=== PATIENT | male | born 1995 | race Caucasian/White ===

== ENCOUNTER 2017-09-07 20:17 | Emergency (ER) | payer SELFPAY ==
[2017-09-07 21:19] VITALS: BP 139/80
--- NOTE | 2017-09-07 21:54 | RADIOLOGY REPORT (SQ) ---
EXAM DESCRIPTION: HAND RIGHT 3 VIEWS COMPLETED DATE/TIME: 09/07/2017 9:46 pm REASON FOR STUDY: pain COMPARISON: 11/26/2011 EXAM PARAMETERS: NUMBER OF VIEWS: Three views. TECHNIQUE: AP, lateral and oblique radiographic images acquired of the right hand. LIMITATIONS: None. FINDINGS: MINERALIZATION: Normal. BONES: No acute fracture or dislocation. No worrisome bone lesions. JOINTS: No effusions. SOFT TISSUES: Soft tissue swelling. No foreign body. OTHER: No other significant finding. IMPRESSION: SOFT TISSUE SWELLING WITHOUT FRACTURE. TECHNICAL DOCUMENTATION: JOB ID: [id number] [employer]- All Rights Reserved Reading location - IP/workstation name: [email or web address]
--- NOTE | 2017-09-07 22:03 | ER Document Report ---
HPI - HPI Pain Level: 4 Context: patient is a right hand dominant 21 year old male who presents to the ED complaining of right hand pain over the 5th metacarpal after pounding his fist on a milk crate earlier this afternoon. Has full ROM, denies numbness or tingling. 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 EENT: DENIES: Sore Throat, Ear Pain, Eye problems - CARDIOVASCULAR Cardiovascular: DENIES: Chest pain - RESPIRATORY Respiratory: DENIES: Trouble Breathing, Coughing - GASTROINTESTINAL Gastrointestinal: DENIES: Abdominal Pain, Black / Bloody Stools - URINARY Urinary: DENIES: Dysuria, Urgency, Frequency - MUSCULOSKELETAL Musculoskeletal: REPORTS: Extremity pain - r hand Past Medical History - Social History Smoking Status: Current Every Day Smoker Family History: Reviewed & Not Pertinent Patient has suicidal ideation: No Patient has homicidal ideation: No Renal/ Medical History: Denies: Hx Peritoneal Dialysis Psychiatric Medical History: Reports: Hx Attention Deficit Hyperactivity Disorder, Hx Bipolar Disorder - Immunizations Immunizations up to date: Yes Hx Diphtheria, Pertussis, Tetanus Vaccination: Yes Hx Pneumococcal Vaccination: 04/02/00 Vertical Provider Document - CONSTITUTIONAL Agree With Documented VS: Yes Notes: PHYSICAL EXAM GENERAL: Alert, interacts well. EXTREMITIES: Moves all 4 extremities spontaneously. mild soft tissue swelling and tenderness over the 5th metacarpal with minimal tenderness No edema, radial pulses 2/4 bilaterally. No cyanosis. cap refill < 2 seconds in b/l UE digits NEUROLOGICAL: Alert and oriented x4. Normal speech. PSYCH: Normal affect, normal mood. SKIN: Warm, dry, normal turgor. No rashes or lesions noted. Course - Re-evaluation Re-evalutation: 09/07/17 22:03 No evidence of a septic joint, gout flare, dislocation, or fracture on exam and imaging. presentation consistent with contusion. Vitals wnl. At this time, I do not see an indication for labs or further imaging. patient accepting franco wrap but declining PO medication. Will discharge with conservative measures, return precautions, and follow-up recommendations. - Vital Signs Vital signs: Temp Pulse Resp BP Pulse Ox 98.8 F 93 20 139/80 H 97 09/07/17 21:17 09/07/17 21:17 09/07/17 21:17 09/07/17 21:17 09/07/17 21:17 - Diagnostic Test Radiology reviewed: Image reviewed, Reports reviewed Procedures - Immobilization Right Hand Pre-Proc Neuro Vasc Exam: Normal Immobilizer type: Franco wrap Performed by: PCT Post-Proc Neuro Vasc Exam: Normal, Unchanged from pre-exam Discharge - Discharge Clinical Impression: Hand injury Qualifiers: Encounter type: initial encounter Laterality: right Qualified Code(s): S69.91XA - Unspecified injury of right wrist, hand and finger(s), initial encounter Condition: Good Disposition: HOME, SELF-CARE Instructions: Franco Wrap (OM), Contusion (OM), Ice & Elevation (OM) Forms: Elevated Blood Pressure Referrals: LOCALMD,NO [Primary Care Provider] - Follow up as needed
[2017-09-07] MEDS ORDERED: ACETAMINOPHEN 325 MG TABLET PO ONE (22:09)
[2017-09-07] MEDS ORDERED: IBUPROFEN 800 MG TABLET PO ONE (22:09)
== END 2017-09-07 22:18 | disposition home or self-care (01) ==
LOC: ER 20:17
DX: S69.91XA Unspecified injury of right wrist, hand and finger(s), initial encounter (principal); M79.641 Pain in right hand; F17.200 Nicotine dependence, unspecified, uncomplicated; W22.09XA Striking against other stationary object, initial encounter
CPT/HCPCS: 99283

== ENCOUNTER 2018-11-07 09:01 | Emergency (ER) | payer OTHER ==
[2018-11-07 09:11] VITALS: BP 153/91
--- NOTE | 2018-11-07 09:47 | ER Document Report ---
HPI - HPI Patient complains to provider of: left elbow pain Time Seen by Provider: 11/07/18 09:18 Onset: Other Quality of pain: Achy Severity: Severe Pain Level: 4 Context: This 23-year-old male presents emergency department with left elbow pain. He reports he went to a job interview physical on Sunday. They had him hold and twirl shovel in the dirt for 2 minutes. He reports 10 minutes after he left the physical his left elbow started hurting. He denies trauma. Denies past medical history of injury to the elbow. Denies fever vomiting diarrhea. Patient points to his left lateral epicondyle area for pain. No fever no warmth no swelling to the area. 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 Lives with: Family Family History: Reviewed & Not Pertinent Patient has suicidal ideation: No Patient has homicidal ideation: No Renal/ Medical History: Denies: Hx Peritoneal Dialysis Psychiatric Medical History: Reports: Hx Attention Deficit Hyperactivity Disorder, Hx Bipolar Disorder Surgical Hx: Negative - Denies - Immunizations Immunizations up to date: Yes Hx Diphtheria, Pertussis, Tetanus Vaccination: Yes Hx Pneumococcal Vaccination: 04/02/00 Vertical Provider Document - CONSTITUTIONAL Agree With Documented VS: Yes Exam Limitations: No Limitations General Appearance: WD/WN, No Apparent Distress - INFECTION CONTROL TRAVEL OUTSIDE OF THE [place] IN LAST 30 DAYS: No - HEENT HEENT: Atraumatic, Normocephalic - NECK Neck: Supple - RESPIRATORY Respiratory: No Respiratory Distress - CARDIOVASCULAR Cardiovascular: Regular Rate - MUSCULOSKELETAL/EXTREMETIES Musculoskeletal/Extremeties: MAEW, FROM, Tender - Left lateral epicondyle area tender to palpation no erythema no swelling no warmth full range of motion good radial pulse good cap refill - NEURO Level of Consciousness: Awake, Alert, Appropriate Motor/Sensory: No Motor Deficit - DERM Integumentary: Warm, Dry Adult Front & Back Diagram: 1 - Patient complains of pain tenderness Course - Re-evaluation Re-evalutation: 11/07/18 09:46 This 23-year-old male presents emergency department reporting that he did a physical for a job on Sunday. They had him hold a shovel and tore a lid indurate for 2 minutes. He reports 10 minutes after leaving the physical his left elbow started hurting. Denies trauma reports he did not fall on the elbow. Reports no history of injury to the elbow. Appears to be lateral epicondylitis. Patient was instructed on plan of care brace ibuprofen for pain follow-up with orthopedics for continued paring. He wa s advised to avoid repetitive motions with that arm. He verbalized understanding to all instructions Dictation of this chart was performed using voice recognition software; therefore, there may be some unintended grammatical errors. - Vital Signs Vital signs: Temp Pulse Resp BP Pulse Ox 98.6 F 75 16 153/91 H 96 11/07/18 09:05 11/07/18 09:05 11/07/18 09:05 11/07/18 09:05 11/07/18 09:05 Discharge - Discharge Clinical Impression: Elbow pain, left Lateral epicondylitis of elbow Qualifiers: Laterality: left Qualified Code(s): M77.12 - Lateral epicondylitis, left elbow Condition: Stable Disposition: HOME, SELF-CARE Instructions: Tennis Elbow (Lateral Epicondylitis) ([facility]), Use of [id number] Ibuprofen ([facility]) Additional Instructions: *You have been evaluated for left lateral epicondylitis *Maintain the brace *Rest/Ice/Elevate our arm *Follow up with orthopedics for continued pain *Avoid repetitive motions *Take ibuProfen as indicated *Return to ED for worsening condition, changes, needs Monitor your blood pressure. Your blood pressure was elevated today. This may be because you were anxious, in pain or because you need medication. It is important to follow up with your primary care provider for full evaluation. Forms: Return to Work, Elevated Blood Pressure
== END 2018-11-07 09:54 | disposition home or self-care (01) ==
LOC: ER 09:01
DX: M25.522 Pain in left elbow (principal); M77.12 Lateral epicondylitis, left elbow; X50.1XXA Overexertion from prolonged static or awkward postures, initial encounter; F17.210 Nicotine dependence, cigarettes, uncomplicated
CPT/HCPCS: 99283